=== PATIENT | male | born 1960 | race Caucasian/White ===

== ENCOUNTER 2020-02-10 17:40 | Emergency (ER) | payer SELFPAY ==
[~2020-02-10] VITALS: Ht 170.2 cm; Wt 72.0 kg
[2020-02-10] MEDS ORDERED: ASPI-496 PO (17:51)
[2020-02-10] MEDS ORDERED: ATOR20TA86 PO (17:52)
--- NOTE | 2020-02-10 18:54 | NUR ---
REPORT FROM PANCHITO RN ASSUMING CARE OF PT AT THIS TIME, PT TO CT NADN
--- NOTE | 2020-02-10 19:37 | NUR ---
PT REPOSTIONED IN BED, EDUCATED ON POC AND REMAINING IN BED. GWEN
[2020-02-10] MEDS ORDERED: L.E.T SOLUTION TP ONE ×2 (19:51→20:00)
--- NOTE | 2020-02-10 19:55 | NUR ---
LET APPLIED PER ERP ALFREDO LOMELI SITTING IN BED NADN.
--- NOTE | 2020-02-10 20:37 | NUR ---
DR LOMELI AT BEDSIDE FOR SUTURES AT THIS TIME
--- NOTE | 2020-02-10 20:49 | NUR ---
PT REDIRECTED TO STAY IN BED AT THIS TIME
--- NOTE | 2020-02-10 21:06 | NUR ---
PT STS HE LIVES ABOUT [place] FROM HERE SO HE WILL STAY AT [facility] BEFORE GOING HOME TOMORROW
--- NOTE | 2020-02-10 22:31 | NUR ---
PT FOUND TO BE DRESSING SELF STANDING AND LEANING ON GURNEY, ATTEMPTED TO AMBULATE PT NOT STEADY ENOUGH TO DC, PT BACK TO ALARM PLACED ON PT.
[2020-02-10 23:27] VITALS: BP 120/74
--- NOTE | 2020-02-10 23:27 | NUR ---
PT NOW SLEEPING ON NAN
--- NOTE | 2020-02-10 23:49 | NUR ---
ATTEMPTED TO AMBULATE PT, PT REQUIRES SIGNIFICANT AMOUNT OF ASSISTANCE, STILL TOO UNSTEADY FOR DC AT THIS TIME
--- NOTE | 2020-02-11 00:38 | NUR ---
PT AWAKE AND REQUESTING SOMETHING TO EAT. PT GIVEN SNACKS AND DRINKS. PT DENIES FURTHER NEEDS AT THIS TIME.
--- NOTE | 2020-02-11 01:14 | NUR ---
ATTEMPTED TO AMBULATE PT, PT SHAKEY AND STILL RATHER UNSTEADY GRABBING GURNEY, WALL AND STS HE IS DIZZY
[2020-02-11] MEDS ORDERED: ONDANSETRON ODT 4 MG ONE ×2 (01:44→01:46)
--- NOTE | 2020-02-11 01:49 | NUR ---
PT C/O NAUSEA, ERP UPDATED, PT MEDICATED PER VERBAL ORDER 4MG ODT ZOFRAN
--- NOTE | 2020-02-11 01:55 | NUR ---
PT REPORTS FEELING BETTER AFTER ZOFRAN
[2020-02-11] MEDS ORDERED: ONDANSETRON ODT 4 MG PO ONE (02:00)
--- NOTE | 2020-02-11 02:36 | NUR ---
PT ABLE TO AMBULATE WITH STEADY GAIT, A/O X4 PT DC HOME VIA TAXI VOUCHER AT THIS TIME.
== END 2020-02-11 02:37 | disposition home or self-care (01) ==
LOC: ED 21:03
DX: S01.311A Laceration without foreign body of right ear, initial encounter (principal); S40.011A Contusion of right shoulder, initial encounter; S80.01XA Contusion of right knee, initial encounter; F10.221 Alcohol dependence with intoxication delirium; Y90.0 Blood alcohol level of less than 20 mg/100 ml; R41.82 Altered mental status, unspecified; E11.9 Type 2 diabetes mellitus without complications; E78.00 Pure hypercholesterolemia, unspecified; X58.XXXA Exposure to other specified factors, initial encounter; Y93.89 Activity, other specified; Y92.89 Other specified places as the place of occurrence of the external cause; Y99.8 Other external cause status
CPT/HCPCS: 12052; 70450; 99284; Q0162

== ENCOUNTER 2020-03-03 09:50 | Inpatient (IN) | payer OTHER ==
[~2020-03-03] VITALS: Ht 172.7 cm; Wt 65.8 kg
[2020-03-03] VITALS (7 sets, daily range): BP systolic 80–98; BP diastolic 44–55
[~2020-03-03 09:50] MED LIST: ASPI-496 PO; ATOR20TA86 PO
--- NOTE | 2020-03-03 10:03 | NUR ---
PT BIB EMS FOR NVD AND SUBJECTIVE FEVERS X 10 DAYS. PT SAYS HE HASNT BEEN ABLE TO EAT MUCH, IS LOSING WEIGHT AND IS DEVELOPING A COUGH. PT IS POOR HISTORIAN. PROVIDER IS BEDSIDE FOR ASSESSMENT
[2020-03-03] MEDS ORDERED: KETOROLAC 30 MG/1 ML ONE (10:14)
[2020-03-03] MEDS ORDERED: ACETAMINOPHEN 325 MG SUPP ONE (10:14)
[2020-03-03] MEDS ORDERED: ACETAMINOPHEN 325 MG TABLET ONE (10:14)
[2020-03-03 10:28] LABS: BASOPHILS # (AUTO) 0.02 x10^3/uL (0-0.1); BASOPHILS % (AUTO) 0 % (0-1); EOSINOPHILS # (AUTO) 0.04 x10^3/uL (0-0.4); EOSINOPHILS % (AUTO) 0 % (1-7); LYMPHOCYTES # (AUTO) 1.61 x10^3/uL (1-3.4); LYMPHOCYTES % (AUTO) 12 % (22-44); MD NO; MEAN CORPUSCULAR HEMOGLOBIN 31.3 pg (27.5-34.5); MEAN CORPUSCULAR HGB CONC 33.6 g/dL (33.2-36.2); MEAN CORPUSCULAR VOLUME 93.1 fL (81-97); MEAN PLATELET VOLUME 8.4 fL (7.4-10.4); MONOCYTES # (AUTO) 0.49 x10^3/uL (0.2-0.8); MONOCYTES % (AUTO) 4 % (2-9); NEUTROPHILS # (AUTO) 11.54 x10^3/uL (1.8-6.8); NEUTROPHILS % (AUTO) 84 % (42-75); PLATELET COUNT 105 x10^3/uL (130-400); RED BLOOD COUNT 4.89 x10^6/uL (4.38-5.82)
[2020-03-03] MEDS ORDERED: KETOROLAC 30 MG/1 ML IVPush ONE (10:30)
[2020-03-03] MEDS ORDERED: SODIUM CHLORIDE 0.9% 1,000ML IVBOLUS ONE ×4 (10:30→17:00)
[2020-03-03] MEDS ORDERED: ACETAMINOPHEN 325 MG TABLET PO ONE (10:30)
[2020-03-03 10:38] LABS: ALBUMIN 2.9 g/dL (3.4-5.0); CALCIUM 9.1 mg/dL (8.5-10.1)
[2020-03-03 10:43] LABS: ALANINE AMINOTRANSFERASE 114 U/L (12-78); ALKALINE PHOSPHATASE 212 U/L (45-117); CREATININE 2.68 mg/dL (0.7-1.3); TOTAL PROTEIN 6.2 g/dL (6.4-8.2); TROPONIN I 0.025 ng/mL (0.000-0.045)
[2020-03-03 10:45] LABS: BILIRUBIN,TOTAL 1.6 mg/dL (0.2-1.0)
[2020-03-03 10:47] LABS: ANION GAP 17 mmol/L (5-15); CHLORIDE 73 mmol/L (98-107)
--- NOTE | 2020-03-03 11:02 | NUR ---
PT RESTING IN [facility]. MD BEDSIDE. PT EDUCATED ON PLAN OF CARE. TBADM
[2020-03-03] MEDS ORDERED: POTASSIUM CHLORIDE 20 MEQ TAB.ER.PRT ONE (11:21)
[2020-03-03] MEDS ORDERED: POTASSIUM CHLORIDE 20 MEQ TAB.ER.PRT PO ONE ×2 (11:30→16:00)
[2020-03-03 11:33] LABS: MICROSCOPIC INDICATED
[2020-03-03] MEDS ORDERED: SODIUM CHLORIDE FLUSH 10ML SYR IVF PRN (12:30)
--- NOTE | 2020-03-03 13:09 | NUR ---
PT RESTING IN [facility]. US IN WITH PT AT THIS TIME
--- NOTE | 2020-03-03 13:22 | NUR ---
PT RESTING IN [facility]. MD NOTIFIED OF BP. SEE MAR FOR INTERVENTIONS
[2020-03-03 13:45] LABS: ALBUMIN 2.4 g/dL (3.4-5.0); ANION GAP 10 mmol/L (5-15); CALCIUM 7.6 mg/dL (8.5-10.1); CHLORIDE 81 mmol/L (98-107); CREATININE 2.35 mg/dL (0.7-1.3)
--- NOTE | 2020-03-03 14:01 | NUR ---
PT AMBULATED TO BATHROOM. STANDBY ASSIST
[2020-03-03] MEDS ORDERED: SODIUM CHLORIDE 0.9% 1,000 ML IV SCH (15:34)
[2020-03-03] MEDS ORDERED: LISI-167 PO (15:59)
[2020-03-03] MEDS ORDERED: METF500T17 PO (15:59)
[2020-03-03] MEDS ORDERED: ATOR40TA78 PO (15:59)
[2020-03-03] MEDS ORDERED: LABETALOL 5MG/ML, 20ML IVPush PRN (16:00)
[2020-03-03] MEDS ORDERED: PROMETHAZINE 25 MG/ML, 1ML IM PRN (16:00)
[2020-03-03] MEDS ORDERED: hydrALAzine 20 MG/ML, 1ML IVPush PRN (16:00)
[2020-03-03] MEDS ORDERED: ACETAMINOPHEN 325 MG TABLET PO PRN (16:00)
[2020-03-03] MEDS ORDERED: ONDANSETRON 2MG/ML, 2ML IVPush PRN (16:00)
[2020-03-03] MEDS: HEPARIN 5,000 UNITS/ML, 1ML SQ SCH ×2 (16:28→23:34)
[2020-03-03 16:39] LABS: INTERNATIONAL NORMALIZED RATIO 1.05 (0.93-1.1); PROTHROMBIN TIME 11.1 Seconds (9.6-11.5)
[2020-03-03 16:42] LABS: MEAN CORPUSCULAR HEMOGLOBIN 31.1 pg (27.5-34.5); MEAN CORPUSCULAR HGB CONC 33.2 g/dL (33.2-36.2); MEAN CORPUSCULAR VOLUME 93.7 fL (81-97); MEAN PLATELET VOLUME 8.5 fL (7.4-10.4); PLATELET COUNT 77 x10^3/uL (130-400); RED BLOOD COUNT 4.39 x10^6/uL (4.38-5.82); RED CELL DISTRIBUTION WIDTH 17.4 % (9.4-14.8)
[2020-03-03 16:44] LABS: BASOPHILS # (AUTO) 0.03 x10^3/uL (0-0.1); BASOPHILS % (AUTO) 0 % (0-1); EOSINOPHILS # (AUTO) 0.01 x10^3/uL (0-0.4); EOSINOPHILS % (AUTO) 0 % (1-7); LYMPHOCYTES # (AUTO) 1.65 x10^3/uL (1-3.4); LYMPHOCYTES % (AUTO) 17 % (22-44); MD SCAN; MONOCYTES # (AUTO) 0.68 x10^3/uL (0.2-0.8); MONOCYTES % (AUTO) 7 % (2-9); NEUTROPHILS % (AUTO) 76 % (42-75)
[2020-03-03] MEDS: PIPERACILLIN/TAZO/PMX 3.375GM 50 ML IV SCH ×2 (18:18→23:34)
[2020-03-03] MEDS: INSULIN LISPRO 100 UNITS/ML, PEN SQ-INSULIN SCH (20:05)
[2020-03-03] MEDS: LINEZOLID PMX 600MG/300ML 300 ML IV SCH (20:06)
[2020-03-03 21:35] LABS: ANION GAP 11 mmol/L (5-15); CALCIUM 7.1 mg/dL (8.5-10.1); CHLORIDE 91 mmol/L (98-107); CREATININE 1.84 mg/dL (0.7-1.3)
[2020-03-03 22:06] LABS: CLOSTRIDIUM DIFFICILE ANTIGEN NEGATIVE; CLOSTRIDIUM DIFFICILE TOXIN NEGATIVE (Negative)
[2020-03-04] MEDS: PIPERACILLIN/TAZO/PMX 3.375GM 50 ML IV SCH ×3 (04:29→17:22)
[2020-03-04 05:52] LABS: ALANINE AMINOTRANSFERASE 87 U/L (12-78); ALBUMIN 2.2 g/dL (3.4-5.0); ANION GAP 13 mmol/L (5-15); CALCIUM 6.4 mg/dL (8.5-10.1); CHLORIDE 97 mmol/L (98-107); CREATININE 1.29 mg/dL (0.7-1.3)
[2020-03-04 06:07] LABS: ALKALINE PHOSPHATASE 158 U/L (45-117); BILIRUBIN,TOTAL 1.2 mg/dL (0.2-1.0); CREATINE KINASE, TOTAL 948 U/L (39-308); TOTAL PROTEIN 4.9 g/dL (6.4-8.2)
[2020-03-04 06:37] VITALS: BP 99/55
[2020-03-04] MEDS: INSULIN LISPRO 100 UNITS/ML, PEN SQ-INSULIN SCH ×4 (07:00→22:47)
[2020-03-04] MEDS ORDERED: POTASSIUM CHLORIDE 40 MEQ in SODIUM CHLORIDE 0.9% 500 ML IV ONE (08:00)
[2020-03-04] MEDS: HEPARIN 5,000 UNITS/ML, 1ML SQ SCH ×2 (08:46→16:22)
[2020-03-04] MEDS: LINEZOLID PMX 600MG/300ML 300 ML IV SCH ×2 (08:46→21:27)
[2020-03-04] MEDS: ASPIRIN 81 MG TABLET EC PO SCH (08:46)
[2020-03-04] MEDS: CALCIUM CARBONATE 500 MG TAB.CHEW PO SCH ×2 (08:49→21:26)
[2020-03-04] MEDS ORDERED: CALCIUM CARBONATE 500 MG TAB.CHEW ONE (08:49)
[2020-03-04] MEDS: LOPERAMIDE 2 MG CAPSULE PO PRN ×2 (11:27→18:39)
[2020-03-04 12:27] VITALS: BP 113/64
[2020-03-04 13:00] LABS: ANION GAP 10 mmol/L (5-15); CALCIUM 6.8 mg/dL (8.5-10.1); CHLORIDE 99 mmol/L (98-107); CREATININE 1.05 mg/dL (0.7-1.3)
[2020-03-04] MEDS: POTASSIUM CHLORIDE 20 MEQ TAB.ER.PRT PO SCH (16:22)
[2020-03-04] MEDS ORDERED: CALCIUM GLUCONATE 0.46MEQ/1ML IVPush ONE (16:30)
[2020-03-04] MEDS ORDERED: MAGNESIUM SULFATE PMX 4GM/100M 100 ML IV ONE (16:30)
[2020-03-04] MEDS ORDERED: CALCIUM GLUCONATE 4.6 MEQ in SODIUM CHLORIDE 0.9% 100 ML IV ONE (18:00)
[2020-03-04 18:59] VITALS: BP 109/58
[2020-03-05 00:19] VITALS: BP 139/80
[2020-03-05] MEDS: HEPARIN 5,000 UNITS/ML, 1ML SQ SCH ×3 (00:40→16:40)
[2020-03-05] MEDS: PIPERACILLIN/TAZO/PMX 3.375GM 50 ML IV SCH ×2 (00:40→06:12)
[2020-03-05 04:44] LABS: MEAN CORPUSCULAR HEMOGLOBIN 31.3 pg (27.5-34.5); MEAN CORPUSCULAR HGB CONC 33.7 g/dL (33.2-36.2); MEAN PLATELET VOLUME 7.7 fL (7.4-10.4); PLATELET COUNT 80 x10^3/uL (130-400); RED CELL DISTRIBUTION WIDTH 17.1 % (9.4-14.8)
[2020-03-05 04:47] LABS: ALANINE AMINOTRANSFERASE 79 U/L (12-78); ALBUMIN 2.5 g/dL (3.4-5.0); ANION GAP 9 mmol/L (5-15); CALCIUM 7.3 mg/dL (8.5-10.1); CHLORIDE 97 mmol/L (98-107); CREATININE 0.88 mg/dL (0.7-1.3)
[2020-03-05 04:49] LABS: ALKALINE PHOSPHATASE 182 U/L (45-117); BILIRUBIN,TOTAL 0.7 mg/dL (0.2-1.0); TOTAL PROTEIN 5.3 g/dL (6.4-8.2)
[2020-03-05 05:47] LABS: BASOPHILS # (AUTO) 0.02 x10^3/uL (0-0.1); BASOPHILS % (AUTO) 0 % (0-1); EOSINOPHILS # (AUTO) 0.05 x10^3/uL (0-0.4); EOSINOPHILS % (AUTO) 1 % (1-7); LYMPHOCYTES # (AUTO) 1.03 x10^3/uL (1-3.4); LYMPHOCYTES % (AUTO) 17 % (22-44); MD SCAN; MONOCYTES # (AUTO) 0.51 x10^3/uL (0.2-0.8); MONOCYTES % (AUTO) 9 % (2-9); NEUTROPHILS # (AUTO) 4.37 x10^3/uL (1.8-6.8); NEUTROPHILS % (AUTO) 73 % (42-75)
[2020-03-05 06:43] VITALS: BP 120/74
[2020-03-05] MEDS: POTASSIUM CHLORIDE 20 MEQ TAB.ER.PRT PO SCH ×2 (09:17→16:39)
[2020-03-05] MEDS: CALCIUM CARBONATE 500 MG TAB.CHEW PO SCH ×2 (09:18→21:35)
[2020-03-05] MEDS: ASPIRIN 81 MG TABLET EC PO SCH (09:18)
[2020-03-05] MEDS ORDERED: POTASSIUM CHLORIDE 40 MEQ in SODIUM CHLORIDE 0.9% 500 ML IV ONE (09:30)
[2020-03-05] MEDS ORDERED: CEFTRIAXONE PMX 1GM/50ML 50 ML IV SCH (09:30)
[2020-03-05] MEDS ORDERED: DOXYCYCLINE 100 MG in DEXTROSE 5% 250 ML IV SCH (09:30)
[2020-03-05] MEDS ORDERED: MAGNESIUM SULFATE 4 GM in SODIUM CHLORIDE 0.9% 100 ML IV ONE (09:30)
[2020-03-05] MEDS ORDERED: SODIUM CHLORIDE 0.9% 1,000 ML IV SCH (09:30)
[2020-03-05] MEDS: INSULIN LISPRO 100 UNITS/ML, PEN SQ-INSULIN SCH ×4 (11:00→21:35)
[2020-03-05 13:22] VITALS: BP 125/73
[2020-03-05] MEDS ORDERED: MAGNESIUM SULFATE PMX 4GM/100M 100 ML ONE (13:52)
[2020-03-05] MEDS ORDERED: AMOXICILLIN/CLAV 875-125MG TABLET PO SCH (18:00)
[2020-03-05] MEDS: AMOXICILLIN/CLAV 875-125MG TABLET PO SCH (18:19)
[2020-03-05 21:03] VITALS: BP 129/83
[2020-03-05] MEDS: DOXYCYCLINE 100MG TABLET PO SCH (21:35)
[2020-03-06] MEDS: HEPARIN 5,000 UNITS/ML, 1ML SQ SCH ×3 (00:11→15:07)
[2020-03-06 00:14] VITALS: BP 126/85
[2020-03-06 05:10] LABS: ALBUMIN 2.5 g/dL (3.4-5.0); ANION GAP 6 mmol/L (5-15); BASOPHILS # (AUTO) 0.03 x10^3/uL (0-0.1); BASOPHILS % (AUTO) 0 % (0-1); CALCIUM 7.7 mg/dL (8.5-10.1); CHLORIDE 103 mmol/L (98-107); EOSINOPHILS # (AUTO) 0.07 x10^3/uL (0-0.4); EOSINOPHILS % (AUTO) 1 % (1-7); LYMPHOCYTES # (AUTO) 1.29 x10^3/uL (1-3.4); LYMPHOCYTES % (AUTO) 22 % (22-44); MD NO; MEAN CORPUSCULAR HEMOGLOBIN 30.8 pg (27.5-34.5); MEAN CORPUSCULAR HGB CONC 33.1 g/dL (33.2-36.2); MEAN PLATELET VOLUME 7.7 fL (7.4-10.4); MONOCYTES # (AUTO) 0.89 x10^3/uL (0.2-0.8); MONOCYTES % (AUTO) 15 % (2-9); NEUTROPHILS # (AUTO) 3.55 x10^3/uL (1.8-6.8); NEUTROPHILS % (AUTO) 61 % (42-75); PLATELET COUNT 113 x10^3/uL (130-400); RED BLOOD COUNT 3.98 x10^6/uL (4.38-5.82); RED CELL DISTRIBUTION WIDTH 17.2 % (9.4-14.8)
[2020-03-06 05:14] LABS: ALANINE AMINOTRANSFERASE 87 U/L (12-78); ALKALINE PHOSPHATASE 185 U/L (45-117); BILIRUBIN,TOTAL 0.6 mg/dL (0.2-1.0); CREATINE KINASE, TOTAL 430 U/L (39-308); CREATININE 0.75 mg/dL (0.7-1.3); TOTAL PROTEIN 5.7 g/dL (6.4-8.2)
[2020-03-06 07:25] VITALS: BP 147/81
[2020-03-06] MEDS: INSULIN LISPRO 100 UNITS/ML, PEN SQ-INSULIN SCH ×3 (08:18→15:16)
[2020-03-06] MEDS ORDERED: metFORMIN 500 MG TABLET PO SCH (09:00)
[2020-03-06] MEDS: DOXYCYCLINE 100MG TABLET PO SCH (09:14)
[2020-03-06] MEDS: AMOXICILLIN/CLAV 875-125MG TABLET PO SCH (09:14)
[2020-03-06] MEDS: POTASSIUM CHLORIDE 20 MEQ TAB.ER.PRT PO SCH (09:14)
[2020-03-06] MEDS: ASPIRIN 81 MG TABLET EC PO SCH (09:14)
[2020-03-06] MEDS: CALCIUM CARBONATE 500 MG TAB.CHEW PO SCH (09:14)
[2020-03-06] MEDS ORDERED: MAGNESIUM SULFATE/D5W 100 ML IV ONE (11:30)
[2020-03-06 12:58] VITALS: BP 142/95
[2020-03-06] MEDS ORDERED: AMOX1TAB12 PO (17:00)
[2020-03-06] MEDS ORDERED: DOXY100T PO (17:00)
== END 2020-03-06 18:18 | disposition home or self-care (01) | DRG 682 ==
LOC: ED 11:44 → EDIP 12:28 → 4NW 15:14
PROVIDERS: ADMIT Internal Medicine Infectious Disease; ATTEND Hospitalist
DX: N17.9 Acute kidney failure, unspecified (principal); E43 Unspecified severe protein-calorie malnutrition; E87.1 Hypo-osmolality and hyponatremia; M62.82 Rhabdomyolysis; N39.0 Urinary tract infection, site not specified; E86.0 Dehydration; E87.8 Other disorders of electrolyte and fluid balance, not elsewhere classified; E87.6 Hypokalemia; N18.9 Chronic kidney disease, unspecified; E11.22 Type 2 diabetes mellitus with diabetic chronic kidney disease; E11.65 Type 2 diabetes mellitus with hyperglycemia; I12.9 Hypertensive chronic kidney disease with stage 1 through stage 4 chronic kidney disease, or unspecified chronic kidney disease; E78.00 Pure hypercholesterolemia, unspecified; E78.5 Hyperlipidemia, unspecified; Z66 Do not resuscitate; D69.6 Thrombocytopenia, unspecified; E83.51 Hypocalcemia; B95.2 Enterococcus as the cause of diseases classified elsewhere; Z87.891 Personal history of nicotine dependence; Z68.22 Body mass index [BMI] 22.0-22.9, adult
CPT/HCPCS: 36415; 71045; 71250; 76700; 80048; 80053; 80307; 81001; 82040; 82330; 82550; 82962; 83036; 83690; 83735; 83930; 84100; 84145; 84443; 84484; 85025; 85610; 86704; 86706; 86708; 86803; 87040; 87077; 87086; 87186; 87324; 87340; 89055; 93005; 96361; 96374; 99285; G0378; J0610; J0696; J1644; J1885; J2020; J2543; J3475; J3480; J7060; J1815; J7030; J7040; U0001-CS

== ENCOUNTER 2020-03-27 13:36 | Emergency (ER) | payer MEDICAID, OTHER ==
[~2020-03-27] VITALS: Ht 170.2 cm; Wt 70.9 kg
[~2020-03-27 13:36] MED LIST changes: +AMOX1TAB12 PO; +ATOR40TA78 PO; +DOXY100T PO; +LISI-167 PO; +METF500T17 PO
--- NOTE | 2020-03-27 15:41 | NUR ---
[facility] REAL ESTATE: PT AMBULATORY TO ROOM FROM LOBBY
[2020-03-27] MEDS ORDERED: METF1000 PO (15:55)
--- NOTE | 2020-03-27 15:56 | NUR ---
Pt presents to ED with c/o left neck pain s/p injury on 02/10/20 where pt was hospitalized for fall from truck. Pt connected to NIBP cuff and continous pulse ox monitor. Bedrails up x 2 and call light within reach. NADN. No needs expressed at this time.
--- NOTE | 2020-03-27 16:41 | NUR ---
LATE NOTE ENTRY DUE TO PT CARE, PT TRANSPORTED ON GURNEY TO IMAGING. PT AWAY FROM ED AT THIS TIME.
--- NOTE | 2020-03-27 17:02 | NUR ---
Pt back to room from MRI.
[2020-03-27 17:50] VITALS: BP 141/78
--- NOTE | 2020-03-27 17:50 | NUR ---
THIS FLOAT RN AT BEDSIDE TO DC PT FOR PRIMARY RN, DEMETRIA. PT VERBALIZED UNDERSTANDING TO DC INSTRUCTIONS. AMBULATORY TO CHECKOUT C STEADY GAIT. VSS.
== END 2020-03-27 17:52 | disposition home or self-care (01) ==
LOC: ED 17:26
DX: S16.1XXA Strain of muscle, fascia and tendon at neck level, initial encounter (principal); M62.838 Other muscle spasm; E78.00 Pure hypercholesterolemia, unspecified; I10 Essential (primary) hypertension; E11.9 Type 2 diabetes mellitus without complications; X58.XXXA Exposure to other specified factors, initial encounter; Y93.89 Activity, other specified; Y92.89 Other specified places as the place of occurrence of the external cause; Y99.8 Other external cause status
CPT/HCPCS: 72141; 99284